=== PATIENT | female | born 1965 | race Caucasian/White ===

== ENCOUNTER → 2020-11-18 | Outpatient (CLI) | payer OTHER ==
[~2020-11-18] MED LIST: BENICAR20 MG PO; CELEBREX 200 M200 M1 PO; CELEXA 20 MG TA20 MG PO; MULTI VITAMIN1 EACH PO; NEXIUM 24HR20 M2 PO; VITAMIN D350 MC3 PO; XELJANZ XR11 MG PO; ZOLOFT100 MG PO
== END ==
LOC: LAB 12:24
PROVIDERS: ATTEND Student in an Organized Health Care Education/Training Program
DX: Z20.822 Contact with and (suspected) exposure to COVID-19 (principal)

== ENCOUNTER → 2020-11-20 | Outpatient (CLI) | payer OTHER ==
[~2020-11-20] VITALS: Ht 172.7 cm; Wt 68.0 kg
--- NOTE | 2020-11-23 18:06 | PATH ---
[facility] [address] [address] PATHOLOGY RPT PROCEDURE Name: RASHIDKARRIE Room #: REG FRANKIE Rivera#: [id number] Admission: 11/20/20 Date of : 61 Discharge: Report #: [id number] Path Case #: [id number] [facility] Accession Number: [id number] . 01 Material submitted: . PART A: colon - RANDOM COLON BIOPSY R/O MICROSCOPIC COLITIS PART B: rectum - RECTAL POLYP . 01 Clinical history: . COLONOSCOPY RECTAL BLEEDING/CHANGE IN BOWEL HABITS . 02 Diagnosis: A. Large intestine, random colon, endoscopic biopsy: - Mild focal active cryptitis, see comment. - Negative for dysplasia or malignancy. . B. Polyp, rectum polyp, endoscopic biopsy: - Hyperplastic polyp. - Negative for dysplasia or malignancy. . (IUV:service order clerk; 11/23/2020) MBR 11/23/2020 1343 Local . 02 Comment: Sections of the colonic mucosa designated "random colon" show focal cryptitis, and a moderately cellular lamina propria composed predominantly of lymphocytes and plasma cells and occasional eosinophils. Surface ulceration is not identified. There are no crypt abscesses, granulomas or viral inclusions. The process affects all the fragments with a similar intensity. Given the description, the differential diagnosis includes focal acute self-limited episode of colitis, resolving episode of infectious-type of colitis, medication/drug induced colitis including bowel preparation as well as diverticulitis. Please correlate with clinical as well as endoscopic findings. (IUV:service order clerk; 11/23/2020) . 02 Electronically signed: . Xenia Hurst MD, Pathologist NPI- [id number] . 01 Gross description: . A. The specimen is received in formalin, labeled "Karrie Mike, random colon biopsy". Received are three segments of pale young tissue ranging in size from 0.2-0.4 cm in maximum dimensions. The specimen is submitted entirely in cassette [place] [address] PATHOLOGY RPT PROCEDURE Name: KARRIE MIKE Room #: REG [facility] Dionicio.#: [id number] Admission: 11/20/20 Date of : 61 Discharge: Report #: [id number] Path Case #: [id number] B. The specimen is received in formalin, labeled "Karrie Mike, rectal polyp". Received is a segment of pale young tissue measuring 0.2 cm in maximum dimensions. The specimen is submitted entirely in cassette B1. (CAA; 11/20/2020) QAC/QAC 11/20/2020 1645 Local . 02 Pathologist provided ICD-10: K62.89, K62.1 . 02 CPT . 726769, 870632 Specimen Comment: A courtesy copy of this report has been sent to [phone], [phone] Specimen Comment: [phone] Specimen Comment: Report sent to / DR SAEED Specimen Comment: Report sent to Performed at: [address] [facility], [place] [id number] MD Jose G Reich MD Phone: [phone] Performed at: [address] [id number] MD Xenia Hurst MD Phone: [phone]
--- NOTE | 2020-11-25 10:53 | P ---
[facility] [address] [address] [place] [address] PROCEDURE REPORT Name: ELIAZAR MIKE Room #: REG FRANKIE Nicole#: [id number] Admission: 11/20/20 Attend Phys: Kapil Washington Discharge: Date of : 61 Report #: [id number] THIS REPORT FOR: cc: Mayda Daly MD,Kapil Corey MD, MD ~ cc: Mayda Daly MD DATE OF SERVICE: 11/20/2020 PROCEDURE PERFORMED: Colonoscopy with biopsies. HISTORY OF PRESENT ILLNESS: The patient is a 55-year-old female who changed in bowel habits with loose stools beginning in 04/2020. No change in medications. She does report intermittent bright red blood per rectum. She has known external hemorrhoids. She has been evaluated by Dr. Татьяна Watson and they have discussed possible surgery. She averages one loose bowel movement per day. Her weight has been stable. No family history of colon cancer. DESCRIPTION OF PROCEDURE: The risks and benefits of the procedure were explained to the patient, those risks including but not limited to bleeding, perforation and the risk of sedation. She understood these risks and gave informed consent. Sedation was given using propofol per anesthesia. Next, a digital rectal exam showed external hemorrhoids, otherwise normal. Next, using a standard Olympus colonoscope, the scope was placed in the patient's anus and advanced under direct vision to the cecum. The overall prep was excellent. The cecum and ileocecal valve were normal in appearance. Ascending, transverse, descending and sigmoid colon were all normal. Random biopsies were obtained today to rule out the possibility of microscopic colitis. In the rectum, a 3 mm sessile polyp was noted. This was removed with cold forceps. On retroflexion, no abnormalities were noted. The scope was then withdrawn and the procedure terminated. The patient tolerated the procedure well. IMPRESSION: 1. Small rectal polyp. 2. External hemorrhoids. 3. Otherwise, normal colonoscopy. RECOMMENDATIONS: 1. Await biopsy results. 2. If polyp is hyperplastic, repeat in 10 years; if adenomatous polyp, repeat in 5 years. 3. We will discuss options for treatment of her diarrhea with the patient. [address] [address] PROCEDURE REPORT Name: ELIAZAR MIKE Room #: REG Albina Rivera#: [id number] Admission: 11/20/20 Attend Phys: Kapil Washington Discharge: Date of : 61 Report #: [id number] Thank you for allowing me to participate in her care. <ELECTRONICALLY SIGNED> By: Kapil Soto MD 11/25/20 1053 [id number] Kapil Soto MD /nt
== END | disposition home or self-care (01) ==
LOC: GI
PROVIDERS: ATTEND Specialist
DX: K92.1 Melena (principal); R19.7 Diarrhea, unspecified; K62.89 Other specified diseases of anus and rectum; K62.1 Rectal polyp; K64.4 Residual hemorrhoidal skin tags; I10 Essential (primary) hypertension; K21.9 Gastro-esophageal reflux disease without esophagitis; Z98.890 Other specified postprocedural states; Z79.899 Other long term (current) drug therapy; Z85.828 Personal history of other malignant neoplasm of skin
CPT/HCPCS: 62110; 62900